=== PATIENT | female | born 1950 | race Caucasian/White ===

== ENCOUNTER → 2020-03-15 12:42 | Outpatient (CLI) | payer MEDICARE, OTHER, SELFPAY ==
--- NOTE | 2020-03-15 | DI.US.S_ITS ---
PROCEDURE: US FINE NEEDLE ASPIRATION INDICATIONS: LEFT THYROID NODULE TECHNIQUE: The indications, alternatives, benefits, risks, and complications of the procedure were explained to the patient. Written informed consent was obtained and placed in the chart. The area of interest was examined sonographically and a site was chosen for ultrasound guided percutaneous sampling. The skin was prepared and draped in the usual fashion, and anesthetized with 1% lidocaine infiltrated from the skin down to the lesion. Multiple passes were then performed, with contents emptied into an appropriate pathology specimen container. A bandage was applied to the area of access at completion of the study. COMPARISON: None. FINDINGS: Location(s) of lesion(s) sampled: A left thyroid nodule [place]: 25 gauge hypodermic needles. Number of passes: 6 Medications: 1% lidocaine for local anaesthesia. Complications: None. IMPRESSION: Successful ultrasound-guided 25 gauge fine needle aspiration, with cytology results pending. Dictated by: Hilario Tran M.D. on 03/15/2020 at 15:57 Approved by: Hilario Tran M.D. on 03/15/2020 at 15:57
== END ==
PROVIDERS: PCP Family Medicine; Referring Provider Surgery; Visit Provider Surgery
DX: E04.1 Nontoxic single thyroid nodule (principal)
CPT/HCPCS: 10005

== ENCOUNTER 2020-07-01 10:53 | Emergency (ER) | payer MEDICARE, OTHER, SELFPAY ==
[2020-07-01 11:00] VITALS: BP 126/60; PULSE 89; RESP 15; TEMP 37; O2SAT 97; BMI 34.4
--- NOTE | 2020-07-01 11:15 | DI.RAD.S_ITS ---
PROCEDURE: XR WRIST RT MIN 3V INDICATIONS: glf,wrist injury TECHNIQUE: 4 views of the wrist were acquired. COMPARISON: None. FINDINGS: Bones: There is a mildly displaced intra-articular radial styloid fracture seen. No additional fractures are detected. No radiocarpal dislocation can be seen. No suspicious bony lesions. Age-appropriate bony degenerative changes are seen. Scaphoid view: No navicular fractures are seen. Soft tissues: No suspicious soft tissue calcifications. IMPRESSION: Mildly displaced, intra-articular radial styloid fracture. Dictated by: Elroy Nelson M.D. on 07/01/2020 at 10:32 Approved by: Elroy Nelson M.D. on 07/01/2020 at 10:33
--- NOTE | 2020-07-01 11:23 | ED.FALL ---
HPI - Fall <RADHAMES Peck - Last Filed: 07/01/20 15:26> General Chief Complaint: Fall Stated Complaint: fell possibly roken rt wrist Time Seen by Provider: 07/01/20 11:14 Source: patient Mode of arrival: Ambulatory History of Present Illness HPI Narrative: 70yo female with a history of Yhuazjv-Swkpj-Mxsbd disorder and is currently on warfarin, presents emergency department for right wrist pain after fall. She states over the past year she has noticed worsening balance issues related to her neurological disease. She states she occasionally trips and falls. Yesterday evening she had difficulty with her balance and reach for her walker but fell. Patient states this is very common of her falls and balance issues related to her neurological disorder. She denies feeling any symptoms prior to falling such as dizziness, lightheadedness, chest pain, or diaphoresis. Patient states she fell forward and hit her forehead and right wrist. She noticed swelling and bruising to her right wrist and worsening pain with movement. Patient denies any other symptoms such as ankle pain, knee pain, hip pain, left-sided pain, neck pain, head pain, dizziness, syncope, confusion, vision changes, chest pain, shortness of breath, fevers, abdominal pain, nausea, vomiting, or diarrhea. Modified trauma. Patient declined head CT. Related Data Home Medications Medication Instructions Recorded Confirmed FUROSEMIDE (Lasix) 40 mg PO Q DAY #0 04/15/08 Fluoxetine Hydrochloride (Prozac) 60 mg PO Q DAY #0 04/15/08 MORPHINE (soluble) - 30 mg PO BID #0 04/15/08 (MORPHINE SULFATE) Nortriptyline Hydrochloride 25 mg PO #0 04/15/08 (Pamelor) OMEPRAZOLE 40 mg PO BID #0 04/15/08 POTASSIUM CHLORIDE (K-Dur) 20 meq PO EVERY DAY #0 04/15/08 WARFARIN SODIUM (COUMADIN) 2.5 mg PO Q DAY #0 04/15/08 [IR0N] #0 04/15/08 [STOOL SOFTNER] #0 04/15/08 atenolol 50 mg PO QDAY #0 04/15/08 gabapentin [Neurontin] 800 mg PO TID #0 04/15/08 Allergies Allergy/AdvReac Type Severity Reaction Status Date / Time phenobarbital Allergy Verified 07/01/20 11:08 Review of Systems <RADHAMES Peck - Last Filed: 07/01/20 15:26> Review of Systems Narrative: REVIEW OF SYSTEMS: GENERAL: Denies fever or chills. HENT: Reports head trauma, see HPI. EYES: No double vision or vision loss. CARDIOVASCULAR: No chest pain. RESPIRATORY: No shortness of breath or cough. GASTROINTESTINAL: No nausea, vomiting, diarrhea, or constipation. GENITOURINARY: No flank pain. MUSCULOSKELETAL: Complains of right wrist pain, see HPI. INTEGUMENTARY: No rash, lesions, or pruritus. NEURO: No numbness, tingling. PSYCH: No behavior or mood changes. Patient History <RADHAMES Peck - Last Filed: 07/01/20 15:26> Medical History No significant medical problems (Acute) Social History Smoking Status: Unknown if ever smoked Smoking Status: Unknown if ever smoked alcohol intake frequency: holidays/special occasions only Substance Use Type: does not use Exam <RADHAMES Peck - Last Filed: 07/01/20 15:26> Initial Vital Signs Initial Vital Signs: Vital Signs Temperature 98.6 F 07/01/20 11:00 Pulse Rate 89 07/01/20 11:00 Respiratory Rate 15 07/01/20 11:00 Blood Pressure 126/60 07/01/20 11:00 Pulse Oximetry 97 07/01/20 11:00 PHYSICAL EXAMINATION: GENERAL: Well groomed, alert, and cooperative. Answers questions promptly and appropriately. Vital signs noted. HENT: Normocephalic, no signs of trauma such as lacerations or contusions. EYES: Symmetrical, sclera white, no periorbital swelling. NECK: No tenderness to palpation of cervical spine. CARDIOVASCULAR: Regular rate. RESPIRATORY: Normal respiratory rate, trachea midline, airway patent. No stridor, nasal flaring or accessory muscle use. MUSCULOSKELETAL: Radial tenderness, swelling, and ecchymosis noted to right wrist. Decreased flexion due to pain. Normal gait and coordination. EXTREMITIES: CMS intact. SKIN: Warm, dry, soft, appropriate color for ethnicity. No lesions, rashes, or wounds. NEURO: Alert and Oriented X 3. No sensory deficits. PSYCH: Appropriate affect and mood. <Jonah Campbell MD - Last Filed: 07/01/20 16:45> Initial Vital Signs Initial Vital Signs: Vital Signs Temperature 98.6 F 07/01/20 11:00 Pulse Rate 89 07/01/20 11:00 Respiratory Rate 15 07/01/20 11:00 Blood Pressure 126/60 07/01/20 11:00 Pulse Oximetry 97 07/01/20 11:00 Procedures <RADHAMES Peck - Last Filed: 07/01/20 15:26> Orthopedic Splinting/Casting Injury #1: Side: right Upper Extremity Injury Location: wrist Upper Extremity Immobilizer: sugar tong splint Post splinting neuro exam: intact Post splinting vascular exam: intact Placed by: Nursing Additional Comments: CMS intact pre and post splint placement. Scores <RADHAMES Peck - Last Filed: 07/01/20 15:26> Nexus Score for C-Spine Focal Neurologic deficit present: No Midline spinal tenderness present: No Altered level of conciousness present: No Intoxication present: No Distracting Injury Present: No Nexus Criteria for C-spine: 0 Course <RADHAMES Peck - Last Filed: 07/01/20 15:26> Course Course Narrative: 1130: Patient declines head CT. Discussed with patient that she is high risk because she had her head and is on Coumadin as a could be bleeding in her brain. Patient states she feels well, family confirms normal behavior. Continues to decline CT. Orders Ordered: ED Orders 07/01/20 11:15 XR wrist RT min 3V Stat Vital Signs Vital signs: Vital Signs - 8 hr 07/01/20 11:00 Temperature 98.6 F Pulse Rate 89 Respiratory Rate 15 Blood Pressure 126/60 Pulse Oximetry 97 <Jonah Campbell MD - Last Filed: 07/01/20 16:45> Orders Ordered: ED Orders 07/01/20 11:15 XR wrist RT min 3V Stat Vital Signs Vital signs: Vital Signs - 8 hr 07/01/20 11:00 Temperature 98.6 F Pulse Rate 89 Respiratory Rate 15 Blood Pressure 126/60 Pulse Oximetry 97 MDM - Fall <RADHAMES Peck - Last Filed: 07/01/20 15:26> Medical Records Attestation: I reviewed the patient's medical records. Lab Data Attestation: I reviewed the patient's lab results. Imaging Data Extremity x-ray #1: Radiologist's Impression: [address] [id number] XRay Report Signed Patient: Mariah Kwong JMR#: [id number] : 9Acct:[id number] Age/Sex: 70 / FDate of Service: 07/01/20 Loc: ED Accession Number: [id number] Procedure: XR wrist RT min 3V Ordering Provider: Piper Márquez PROCEDURE: XR WRIST RT MIN 3V INDICATIONS: glf,wrist injury TECHNIQUE: 4 views of the wrist were acquired. COMPARISON: None. FINDINGS: Bones: There is a mildly displaced intra-articular radial styloid fracture seen. No additional fractures are detected. No radiocarpal dislocation can be seen. No suspicious bony lesions. Age-appropriate bony degenerative changes are seen. Scaphoid view: No navicular fractures are seen. Soft tissues: No suspicious soft tissue calcifications. IMPRESSION: Mildly displaced, intra-articular radial styloid fracture. Dictated by: Elroy Nelson M.D. on 07/01/2020 at 10:32 Approved by: Elroy Nelson M.D. on 07/01/2020 at 10:33 [facility] Narrative Medical decision making narrative: 70-year-old female with a neuromuscular disease, presents emergency department for right wrist pain after fall. Patient did hit her head and she is currently taking Coumadin. Affects trauma called, patient continued to decline head CT. Neuro exam intact, family at bedside states she is acting normally, no visible trauma to head. Nexus score of 0. Discussed benefits and wrist to head CT, patient continued to decline testing. X-ray shows a radial styloid fracture, reverse sugar-tong was applied, patient was referred to Ortho. CMS intact pre and post splint application by nursing. Patient was given a sling. Return precautions given for new or worsening symptoms. Patient agreed to plan of care verbalized understanding. Discharge Plan Departure Patient Disposition: Home Clinical Impression: Fracture of wrist Qualifiers: Encounter type: initial encounter Fracture type: closed Laterality: right Qualified Code(s): S62.101A - Fracture of unspecified carpal bone, right wrist, initial encounter for closed fracture Discharge Date/Time: 07/01/20 12:44 Instructions: DI for Wrist Fracture Activity Restrictions/Additional Instructions: Thank you for entrusting me with your care today. As discussed, your right wrist is fractured. You have a radial styloid fracture. We have placed a splint on your wrist, please leave this in place. If the Patricio bandages become too tight you can unwrap them and rewrapped them in a looser fashion. Use the sling as needed for comfort. Follow-up with orthopedic listed below. As discussed, you declined your CT scan. You are at high risk of injury because urine Coumadin in you hit your head. If you developed any new or worsening symptoms please return emergency department immediately. Prescriptions: No Action atenolol 50 MG tablet 50 mg PO QDAY Qty: 0 RF: 0 MORPHINE (soluble) - (MORPHINE SULFATE) 30 mg PO BID Qty: 0 RF: 0 gabapentin [Neurontin] 600 MG tablet 800 mg PO TID Qty: 0 RF: 0 FUROSEMIDE (Lasix) 40 mg PO Q DAY Qty: 0 RF: 0 OMEPRAZOLE 40 mg PO BID Qty: 0 RF: 0 Fluoxetine Hydrochloride (Prozac) 60 mg PO Q DAY Qty: 0 RF: 0 Nortriptyline Hydrochloride (Pamelor) 25 mg PO Qty: 0 RF: 0 POTASSIUM CHLORIDE (K-Dur) 20 meq PO EVERY DAY Qty: 0 RF: 0 WARFARIN SODIUM (COUMADIN) 2.5 mg PO Q DAY Qty: 0 RF: 0 [IR0N] Qty: 0 RF: 0 [STOOL SOFTNER] Qty: 0 RF: 0 Referrals: Dominic Brady MD [Physician] - Abelardo Charles DO [Primary Care Provider] - <Jonah Campbell MD - Last Filed: 07/01/20 16:45> Cosign ED Attending Cosignature Attestation: I was immediately available in the department for consultation. This documentation has been reviewed and I agree with assessment and plan. Supervised by Jonah Campbell MD
--- NOTE | 2020-07-01 11:33 | PC.NURSE ---
Patient is a modified trauma. On coumadin and hit her head. Pt refuses head CT at this time. Provider aware.
== END 2020-07-01 12:44 | disposition home or self-care (01) ==
PROVIDERS: Emergency Provider Nurse Practitioner; PCP Family Medicine
DX: S62.101A Fracture of unspecified carpal bone, right wrist, initial encounter for closed fracture (principal); W19.XXXA Unspecified fall, initial encounter
CPT/HCPCS: 29125; 73110; 99283; 99284

== ENCOUNTER 2021-04-23 22:27 | Emergency (ER) | payer MEDICARE, OTHER, SELFPAY ==
[2021-04-23] VITALS (7 sets, daily range): BP systolic 104–132; BP diastolic 53–61; PULSE 99–106; RESP 0–28; TEMP 37.3; O2SAT 95–98
[2021-04-23] MEDS: SODIUM CHLORIDE 0.9% 1,000 ML 1000 ML IV (22:00)
--- NOTE | 2021-04-23 22:45 | DI.RAD.S_ITS ---
PROCEDURE: XR CHEST 1V INDICATIONS: suspected sepsis TECHNIQUE: One view of the chest was acquired. COMPARISON: [facility], CT, CT CHEST WO CON, 10/11/2015, 21:43. [facility], CR, XR CHEST 1VW (PORTABLE), 10/08/2015, 8:35. [facility], CR, XR CHEST 2VW, 10/11/2015, 10:53. FINDINGS: Surgical changes and devices: None. Lungs and pleura: Bilateral perihilar infiltrates consistent with pulmonary edema or perihilar pneumonia. Small left pleural effusion. No or pneumothorax. Mediastinum: Mediastinal contours appear normal. Heart size is moderately increased. Bones and chest wall: No suspicious bony lesions. Overlying soft tissues appear unremarkable. IMPRESSION: 1. Bilateral perihilar infiltrates consistent with pulmonary edema or bilateral perihilar pneumonia. 2. Mild cardiomegaly. 3. Small left pleural effusion. No significant discrepancy with the game programmer radiology preliminary report. Dictated by: Cadence Wright M.D. on 04/24/2021 at 9:04 Approved by: Cadence Wright M.D. on 04/24/2021 at 9:07
[2021-04-23 23:03] LABS: Bacteria Urine None Seen; WBC Urine None Seen (0-5/HPF)
[2021-04-23 23:04] LABS: Appearance Urine UA CLEAR; Bilirubin Urine UA NEGATIVE (NEGATIVE); Color Urine UA YELLOW; Glucose Urine UA NEGATIVE (Negative); Ketones Urine UA NEGATIVE (NEGATIVE); Leukocyte Esterase Urine UA NEGATIVE (NEGATIVE); Nitrite Urine UA NEGATIVE (Negative); Occult Blood Urine UA TRACE-LYSED (Negative); Protein Urine UA TRACE (Negative); Urobilinogen Urine UA 0.2 E.U./dL (0.2)
[2021-04-23 23:10] LABS: pH Urine UA 5.5 (4.5-8.0)
[2021-04-23 23:12] LABS: Culture Indicated Urine Cult Not Indicated; Hyaline Casts Urine 0-1/LPF; RBC Urine 1-5/HPF (0-5/HPF); Squamous Epithelial Cell Urine 0-1 /HPF (0-5/HPF)
--- NOTE | 2021-04-23 23:38 | ED_ITS ---
HPI - General Adult General Chief complaint: Altered Mental Status Stated complaint: alert but confused, neg FAST Time Seen by Provider: 04/23/21 23:36 Source: EMS Mode of arrival: EMS History of Present Illness HPI narrative: Patient is a 70-year-old female who arrives by EMS for evaluation of confusion and elevated fever. Patient is unable to provide any HPI however EMS he was called by the patient's family for the reported presenting symptoms. Upon my evaluation the patient is arousable however is not able to answer any questions. Related Data Home Medications Medication Instructions Recorded Confirmed FUROSEMIDE (Lasix) 40 mg PO Q DAY #0 04/15/08 Fluoxetine Hydrochloride (Prozac) 60 mg PO Q DAY #0 04/15/08 MORPHINE (soluble) - 30 mg PO BID #0 04/15/08 (MORPHINE SULFATE) Nortriptyline Hydrochloride 25 mg PO #0 04/15/08 (Pamelor) OMEPRAZOLE 40 mg PO BID #0 04/15/08 POTASSIUM CHLORIDE (K-Dur) 20 meq PO EVERY DAY #0 04/15/08 WARFARIN SODIUM (COUMADIN) 2.5 mg PO Q DAY #0 04/15/08 [IR0N] #0 04/15/08 [STOOL SOFTNER] #0 04/15/08 atenolol 50 mg tablet 50 mg PO QDAY #0 04/15/08 gabapentin 600 mg tablet 800 mg PO TID #0 04/15/08 (Neurontin) Previous Rx's Medication Instructions Recorded azithromycin 250 mg tablet 250 mg PO DAILY 4 Days #4 tab 04/24/21 Allergies Allergy/AdvReac Type Severity Reaction Status Date / Time phenobarbital Allergy Verified 07/01/20 11:08 Review of Systems Review of Systems Narrative: Unable to obtain secondary to patient's mental status ROS Unobtainable: Unobtainable due to mental condition Patient History Medical History Gastroesophageal reflux disease Hypertension No significant medical problems Social History Smoking Status: Unknown if ever smoked Smoking Status: Unknown if ever smoked alcohol intake frequency: holidays/special occasions only Substance Use Type: does not use Exam Initial Vital Signs Initial Vital Signs: Vital Signs Temperature 99.2 F 04/23/21 22:40 Pulse Rate 105 H 04/23/21 22:40 Respiratory Rate 24 04/23/21 22:40 Blood Pressure 132/61 04/23/21 22:40 Pulse Oximetry 96 04/23/21 22:40 Const General: ill appearing HENMT Head: normal to inspection and normocephalic Resp Effort & Inspection: not labored and tachypneic Auscultation: clear to auscultation bilaterally Cardio Rate: regular rate Rhythm: regular rhythm Heart Sounds: murmur GI Palpation: soft Skin General: no rashes or lesions noted Neuro General: moves all extremities Speech: other (Patient will not answer questions) Extrem General: capillary refill normal Psych Appearance: disheveled Scores GCS Radha coma scale eye opening: To sound Radha coma scale verbal response: None [employer] coma scale motor response: Obey commands [employer] coma scale total score: 10 Course Orders Ordered: ED Orders 04/23/21 22:45 XR chest 1V Stat EKG-12 Lead Stat RT Consult Eval and Treat Now 04/23/21 22:55 Urinalysis and Microscopic Stat 04/23/21 23:15 Complete Blood Count AUTO DIFF Stat Comprehensive Metabolic Panel Stat Lactate (Lactic Acid) Stat Lipase Stat Procalcitonin Stat 04/23/21 23:21 Blood Culture Stat 04/23/21 23:53 COVID19 - ADMIT (VP [facility]GR[facility] swab/PCR) Stat Sodium Chloride (Normal Saline 0.9%) 1,000 mls @ 125 mls/hr IV CONT ROBERT Last Admin: 04/24/21 01:48 Dose: 125 mls/hr Documented by: TAMMY Discontinued Medications Acetaminophen (Acetaminophen 325 Mg Tablet) 650 mg PO NOW ONE Stop: 04/24/21 06:10 Last Admin: 04/24/21 06:15 Dose: 650 mg Documented by: Sodium Chloride (Normal Saline 0.9%) 1,000 mls @ 1,000 mls/hr IV BOLUS ONE Stop: 04/23/21 23:44 Last Infusion: 04/24/21 01:08 Dose: 0 mls/hr Documented by: Admin: 04/23/21 22:00 Dose: 1,000 mls/hr Documented by: TAMMY Ceftriaxone Sodium 1,000 mg/ (Sodium Chloride) 100 mls @ 200 mls/hr IV NOW ONE Stop: 04/23/21 23:38 Last Infusion: 04/24/21 01:07 Dose: 0 mls/hr Documented by: Admin: 04/23/21 23:49 Dose: 200 mls/hr Documented by: VALORIE Azithromycin 500 mg/ Dextrose 250 mls @ 250 mls/hr IV NOW ONE Stop: 04/23/21 23:45 Last Infusion: 04/24/21 01:07 Dose: 0 mls/hr Documented by: Admin: 04/24/21 00:21 Dose: 250 mls/hr Documented by: VALORIE Vital Signs Vital signs: Vital Signs - 8 hr 04/23/21 22:45 04/23/21 23:00 04/23/21 23:11 Temperature Pulse Rate 106 H 103 H 102 H Respiratory Rate 0 L 28 H 25 H Blood Pressure 124/59 L 123/58 L Pulse Oximetry 96 95 96 04/23/21 23:15 04/23/21 23:30 04/23/21 23:45 Temperature Pulse Rate 102 H 100 H 99 H Respiratory Rate 25 H 23 22 Blood Pressure 104/53 L Pulse Oximetry 96 98 98 04/24/21 00:00 04/24/21 00:15 04/24/21 00:30 Temperature Pulse Rate 99 H 97 H 93 H Respiratory Rate 19 21 Blood Pressure 112/56 L 119/71 Pulse Oximetry 92 92 04/24/21 00:45 04/24/21 01:00 04/24/21 01:15 Temperature 98 F Pulse Rate 92 H 91 H 93 H Respiratory Rate 17 Blood Pressure 110/71 Pulse Oximetry 99 97 04/24/21 01:30 04/24/21 01:45 04/24/21 02:00 Temperature Pulse Rate 91 H 88 87 Respiratory Rate 19 18 18 Blood Pressure 100/59 L 105/60 Pulse Oximetry 100 100 99 04/24/21 02:15 04/24/21 02:30 04/24/21 02:45 Temperature Pulse Rate 87 88 89 Respiratory Rate 18 32 H Blood Pressure 106/52 L Pulse Oximetry 99 98 99 04/24/21 03:00 04/24/21 03:15 04/24/21 03:30 Temperature Pulse Rate 89 90 90 Respiratory Rate Blood Pressure 104/58 L 113/59 L Pulse Oximetry 99 98 98 04/24/21 03:45 04/24/21 04:00 04/24/21 04:15 Temperature Pulse Rate 88 86 85 Respiratory Rate Blood Pressure 120/69 Pulse Oximetry 98 99 99 04/24/21 04:30 04/24/21 04:45 04/24/21 05:00 Temperature Pulse Rate 86 87 93 H Respiratory Rate Blood Pressure 114/66 162/91 H Pulse Oximetry 99 99 97 04/24/21 05:15 04/24/21 05:30 04/24/21 05:45 Temperature Pulse Rate 91 H 94 H 94 H Respiratory Rate Blood Pressure 131/66 Pulse Oximetry 98 98 98 04/24/21 06:00 04/24/21 06:01 04/24/21 06:15 Temperature Pulse Rate 93 H 94 H 89 Respiratory Rate Blood Pressure 153/70 H Pulse Oximetry 97 98 93 Medical Decision Making Medical Records Medical records reviewed: Yes I reviewed the patient's medical records. Lab Data Lab results reviewed: Yes I reviewed the patient's lab results. Result diagrams: 04/23/21 23:15 04/23/21 23:15 Labs: Lab Results 04/23/21 04/23/21 04/23/21 Range/Units 22:55 23:15 23:15 WBC 10.4 (4.5-11.0) X10^3/uL RBC 3.63 L (4.0-5.2) X10^6/uL Hgb 9.4 L (12.0-16.0) g/dL Hct 29.2 L (36-46) % MCV 80.6 (80-100) fL MCH 26.0 (26-34) PG MCHC 32.3 (30-36) % RDW 15.9 H (11.6-14.8) % Plt Count 392 (150-400) X10^3/uL Neut % (Auto) 81.1 H (50-75) % Lymph % (Auto) 13.6 L (25-40) % [place] % (Auto) 4.3 (3-14) % Eos % (Auto) 0.3 L (2-4) % Baso % (Auto) 0.7 (0-2) % Neut # (Auto) 8400 H (2086-5593) /uL Lymph # (Auto) 1400 (7136-5574) /uL [place] # (Auto) 400 (0-900) /uL Eos # (Auto) 0 (0-450) /uL Baso # (Auto) 100 (0-100) /uL Sodium 138 (137-145) mmol/L Potassium 4.4 (3.4-5.1) mmol/L Chloride 105 (98-107) mmol/L Carbon Dioxide 28 (22-32) mmol/L BUN 21 H (7-17) mg/dL Creatinine 0.95 (0.52-1.04) mg/dL Estimated GFR 58.0 L (>60) mL/min BUN/Creatinine Ratio 22.1 H (6-22) Glucose 151 H (80-110) mg/dL Lactate (0.7-2.1) mmol/L Calcium 8.8 (8.4-10.2) mg/dL Total Bilirubin 0.4 (0.2-1.3) mg/dL AST 19 (14-36) IU/L ALT 9 (<35) IU/L Alkaline Phosphatase 109 (38-126) U/L Total Protein 7.7 (6.3-8.2) g/dL Albumin 3.5 (3.5-5.0) g/dL Globulin 4.2 H (1.7-4.1) g/dL Albumin/Globulin Ratio 0.8 L (1.0-2.8) Lipase 15 L (23-300) U/L Procalcitonin 0.09 (<0.5) ng/mL Urine Color Yellow Urine Appearance Clear Urine pH 5.5 (4.5-8.0) Ur Specific [place] 1.020 (1.000-1.035) Urine Protein Trace H (Negative) Urine Glucose (UA) Negative (Negative) g/dL Urine Ketones Negative (NEGATIVE) Urine Occult Blood Trace-lysed (Negative) Urine Nitrate Negative (Negative) Urine Bilirubin Negative (NEGATIVE) Urine Urobilinogen 0.2 (0.2) E.U./dL Ur Leukocyte Esterase Negative (NEGATIVE) Urine RBC 1-5/hpf (0-5/HPF) Urine WBC None seen (0-5/HPF) Ur Squamous Epith Cells 0-1 /hpf (0-5/HPF) Urine Bacteria None seen (None) Hyaline Casts 0-1/lpf (None) Ur Culture Indicated? Cult not indicated SARS-CoV-2 (PCR) (Negative) 04/23/21 04/23/21 Range/Units 23:15 23:53 WBC (4.5-11.0) X10^3/uL RBC (4.0-5.2) X10^6/uL Hgb (12.0-16.0) g/dL Hct (36-46) % MCV (80-100) fL MCH (26-34) PG MCHC (30-36) % RDW (11.6-14.8) % Plt Count (150-400) X10^3/uL Neut % (Auto) (50-75) % Lymph % (Auto) (25-40) % [place] % (Auto) (3-14) % Eos % (Auto) (2-4) % Baso % (Auto) (0-2) % Neut # (Auto) (8314-7836) /uL Lymph # (Auto) (1950-5358) /uL [place] # (Auto) (0-900) /uL Eos # (Auto) (0-450) /uL Baso # (Auto) (0-100) /uL Sodium (137-145) mmol/L Potassium (3.4-5.1) mmol/L Chloride (98-107) mmol/L Carbon Dioxide (22-32) mmol/L BUN (7-17) mg/dL Creatinine (0.52-1.04) mg/dL Estimated GFR (>60) mL/min BUN/Creatinine Ratio (6-22) Glucose (80-110) mg/dL Lactate 0.8 (0.7-2.1) mmol/L Calcium (8.4-10.2) mg/dL Total Bilirubin (0.2-1.3) mg/dL AST (14-36) IU/L ALT (<35) IU/L Alkaline Phosphatase (38-126) U/L Total Protein (6.3-8.2) g/dL Albumin (3.5-5.0) g/dL Globulin (1.7-4.1) g/dL Albumin/Globulin Ratio (1.0-2.8) Lipase (23-300) U/L Procalcitonin (<0.5) ng/mL Urine Color Urine Appearance Urine pH (4.5-8.0) Ur Specific [place] (1.000-1.035) Urine Protein (Negative) Urine Glucose (UA) (Negative) g/dL Urine Ketones (NEGATIVE) Urine Occult Blood (Negative) Urine Nitrate (Negative) Urine Bilirubin (NEGATIVE) Urine Urobilinogen (0.2) E.U./dL Ur Leukocyte Esterase (NEGATIVE) Urine RBC (0-5/HPF) Urine WBC (0-5/HPF) Ur Squamous Epith Cells (0-5/HPF) Urine Bacteria (None) Hyaline Casts (None) Ur Culture Indicated? SARS-CoV-2 (PCR) Negative (Negative) Imaging Data Chest x-ray: Radiologist's Impression: Left basilar infiltrate and small left pleural effusion Scattered atelectasis is also noted bilaterally ECG Data Interpretation: Sinus rhythm Ventricular rate 94 Normal axis Normal QRS Normal QTC No ST T wave changes MDM Narrative Medical decision making narrative: Patient upon arrival was ill-appearing. Had a GCS of 10. Was not answering any questions. Was diaphoretic. Was febrile. Labs and cultures for obtain. Initially given a dose of antibiotics. Once the chest x-ray resulted there was concern about pneumonia. She was then given azithromycin. Unfortunately no bed availability here at the hospital overnight and also in the local area so she was boarded here in the emergency department. Throughout the night she received fluids. Her fever improved. Several hours later she started to feel much better. She was alert oriented x3. GCS of 15. States that she knew that she was in the hospital and that she came to the hospital because her fever was elevated. She does state that her ?lungs hurt ?she reports no other symptoms. Throughout the morning she became more alert. Stating that she was feeling very well. She does use a walker at baseline. She was able to walk around the emergency department without having any desaturations and felt at baseline. She was maintaining her oxygen saturations on room air. I feel that despite the initial plan to admit to the hospital for altered mental status and pneumonia given her improvement overnight that the patient can be discharged home with oral antibiotics. Treat her as a community-acquired pneumonia. She was given instructions for follow-up and also return precautions. Antibiotics were sent to the pharmacy of her choice. She expressed understanding and agreement. Discharge Plan Departure Patient Disposition: Home Clinical Impression: Altered mental status, Pneumonia Instructions: Pneumonia-Adult Activity Restrictions/Additional Instructions: I suspect that the symptoms that brought him into the emergency department last night were caused by the environmental heat over the past couple days and also because of the pneumonia that was found on the chest x-ray. We do need to treat you with antibiotics. Prescription for these antibiotics was sent to the pharmacy of your choice. I recommend that you continue the rest of your medications as directed. Contact your primary provider for a follow-up in please return to the emergency department for any new or worsening symptoms Prescriptions: New azithromycin 250 mg tablet 250 mg PO DAILY 4 Days Qty: 4 RF: 0 No Action atenolol 50 MG tablet 50 mg PO QDAY Qty: 0 RF: 0 MORPHINE (soluble) - (MORPHINE SULFATE) 30 mg PO BID Qty: 0 RF: 0 gabapentin [Neurontin] 600 MG tablet 800 mg PO TID Qty: 0 RF: 0 FUROSEMIDE (Lasix) 40 mg PO Q DAY Qty: 0 RF: 0 OMEPRAZOLE 40 mg PO BID Qty: 0 RF: 0 Fluoxetine Hydrochloride (Prozac) 60 mg PO Q DAY Qty: 0 RF: 0 Nortriptyline Hydrochloride (Pamelor) 25 mg PO Qty: 0 RF: 0 POTASSIUM CHLORIDE (K-Dur) 20 meq PO EVERY DAY Qty: 0 RF: 0 WARFARIN SODIUM (COUMADIN) 2.5 mg PO Q DAY Qty: 0 RF: 0 [IR0N] Qty: 0 RF: 0 [STOOL SOFTNER] Qty: 0 RF: 0 Referrals: Abelardo Charles DO [Primary Care Provider] -
[2021-04-23 23:40] LABS: Add Manual Diff / Slide Review NO; Basophils Absolute Auto 100 /uL (0-100); Basophils Percent Auto 0.7 % (0-2); Eosinophils Absolute Auto 0 /uL (0-450); Eosinophils Percent Auto 0.3 % (2-4); Hematocrit 29.2 % (36-46); Hemoglobin 9.4 g/dL (12.0-16.0); Lymphocytes Absolute Auto 1400 /uL (1100-4500); Lymphocytes Percent Auto 13.6 % (25-40); Mean Corpuscular HGB Conc 32.3 % (30-36); Mean Corpuscular Volume 80.6 fL (80-100); Monocytes Absolute Auto 400 /uL (0-900); Monocytes Percent Auto 4.3 % (3-14); Neutrophils Absolute Auto 8400 /uL (1500-7000); Neutrophils Percent Auto 81.1 % (50-75); Platelet Count 392 X10^3/uL (150-400); Red Blood Cell Count 3.63 X10^6/uL (4.0-5.2); Red Cell Distribution Width 15.9 % (11.6-14.8); White Blood Cell Count 10.4 X10^3/uL (4.5-11.0)
[2021-04-23 23:49] LABS: Alanine Aminotransferase 9 IU/L (<35); Albumin 3.5 g/dL (3.5-5.0); Albumin Globulin Ratio 0.8 (1.0-2.8); Alkaline Phosphatase 109 U/L (38-126); Aspartate Aminotransferase 19 IU/L (14-36); BUN Creatinine Ratio 22.1 (6-22); Bilirubin Total 0.4 mg/dL (0.2-1.3); Blood Urea Nitrogen 21 mg/dL (7-17); Calcium 8.8 mg/dL (8.4-10.2); Carbon Dioxide 28 mmol/L (22-32); Chloride 105 mmol/L (98-107); Globulin 4.2 g/dL (1.7-4.1); Glucose 151 mg/dL (80-110); HEMOLYSIS < 15 (0-50); Lactate (Lactic Acid) 0.8 mmol/L (0.7-2.1); Lipase 15 U/L (23-300); Potassium 4.4 mmol/L (3.4-5.1); Sodium 138 mmol/L (137-145); Total Protein 7.7 g/dL (6.3-8.2)
[2021-04-23] MEDS: cefTRIAXone 1,000 MG in SODIUM CHLORIDE 0.9% 100 ML 200 ML IV (23:49)
[2021-04-24] VITALS (27 sets, daily range): BP systolic 100–162; BP diastolic 52–91; PULSE 85–99; RESP 17–32; TEMP 36.6; O2SAT 92–100
[2021-04-24 00:06] LABS: Procalcitonin 0.09 ng/mL (<0.5)
[2021-04-24] MEDS: AZITHROMYCIN 500 MG in DEXTROSE 5% IN WATER 250 ML IV (00:21)
[2021-04-24 00:54] LABS: COVID19 - ADMIT (NP swab/PCR) Negative (Negative)
[2021-04-24] MEDS: SODIUM CHLORIDE 0.9% 1,000 ML 125 ML IV (01:48)
--- NOTE | 2021-04-24 02:16 | PC.NURSE ---
She is becoming more alert now,more talkative and aware she is in the hospital,the year and asked for her wig,which is in a bag at her bedside.
[2021-04-24] MEDS: ACETAMINOPHEN 325 MG TABLET 650 MG PO (06:15)
--- NOTE | 2021-04-24 06:50 | PC.NURSE ---
She walked with a walker approx. 15 yards with her o2 saturation on RA staying at 94 per cent.She feels better and wants to go home.
--- NOTE | 2021-04-24 06:52 | PC.NURSE ---
She is tolerating liquids by mouth and her ayala catheter was removed intact per protocol.
--- NOTE | 2021-04-24 08:15 | PC.NURSE ---
ambulated with walker.
== END 2021-04-24 08:20 | disposition home or self-care (01) ==
PROVIDERS: Emergency Provider Emergency Medicine; PCP Family Medicine
DX: J18.9 Pneumonia, unspecified organism (principal); R41.82 Altered mental status, unspecified; R50.9 Fever, unspecified; Z20.822 Contact with and (suspected) exposure to COVID-19
CPT/HCPCS: 36415; 51702; 71045; 80053; 81001; 83605; 83690; 84145; 85025; 87040; 87635; 93005; 96361; 96365; 96368; 99285; C9803; J0696

== ENCOUNTER → 2022-01-18 14:02 | Outpatient (CLI) | payer MEDICARE, OTHER, SELFPAY ==
--- NOTE | 2022-01-18 | DI.MRI.S_ITS ---
PROCEDURE: MR LUMBAR SPINE WO CON INDICATIONS: Radiculopathy, lumbar region TECHNIQUE: Noncontrast sagittal T1 spin echo and T2 fast echo, sagittal STIR, and T2 fast spin echo through the lumbar spine. In cases with scoliosis, additional coronal T2 fast spin echo may be performed. COMPARISON: [facility], CR, XR LUMBAR SPINE WITH OLBIQUES PLUS FLEXION EXTENSION, 11/24/2019, 10:53. [facility], MR, MR LUMBAR SPINE WITHOUT CONTRAST, 12/01/2019, 12:41. FINDINGS: Image quality: Excellent. Alignment and Curvature: Mild levoconvex scoliotic curvature is noted. Accentuated thoracic kyphosis is seen. No focal AP alignment abnormality is seen. Bone Marrow: Marrow is of normal overall signal. Scattered foci are seen, which are hyperintense on T1-weighted and T2-weighted imaging, which are most consistent with benign vertebral body hemangiomas. No acute vertebral body compression fractures. Sacral fatty metaplasia can be seen. Spinal Cord: Conus medullaris terminates at the L1 level. Visualized cord demonstrates normal signal and size. Paraspinous Soft Tissues: No paravertebral masses. T11-T12: At least moderate loss of disc height and disc signal can be seen anteriorly. No significant neural foraminal or central canal narrowing can be seen. T12-L1: Moderate loss of disc height is seen. Loss of disc signal is seen. No neural foraminal narrowing or central canal narrowing can be seen. L1-L2: The disc height is well-preserved. Loss of disc signal is seen at this level. No neural foraminal narrowing. No central canal narrowing. Stable from the prior study. L2-L3: The disc height is well-preserved. Loss of disc signal is seen at this level. Mild generalized disc bulge is seen. There is a superimposed central disc protrusion. Mild to moderate facet hypertrophy is seen. There is mild left-sided and no right-sided neural foraminal narrowing. Mild central canal narrowing is seen. When comparison is made with the prior images, these findings are similar. L3-L4: The disc height is well-preserved. Loss of disc signal is seen at this level. Mild generalized disc bulge is seen. Mild facet joint hypertrophy is seen. No significant neural foraminal or central canal narrowing can be seen. No significant change from the prior. L4-L5: The disc height is well-preserved. Loss of disc signal is seen at this level. Moderate disc bulge is seen, with a central disc protrusion. At least moderate facet hypertrophy is seen. Associated hypertrophy of the ligamentum flavum can be seen. Fluid is seen within the facet joints themselves. [id number] bilateral neural foraminal narrowing can be seen. Mild to moderate central canal narrowing is seen. When comparison is made with the prior images, these findings are similar. L5-S1: The disc height and disc signal are relatively well preserved. Postoperative change can be seen, with prior right hemilaminectomy. At least moderate facet hypertrophy is seen. There is moderate to severe right-sided neural foraminal narrowing, with a degree of compression upon the exiting right L5 nerve root. Moderate left-sided neural foraminal narrowing is seen. No significant central canal narrowing is seen. When comparison is made with the prior images, these findings are similar. IMPRESSION: Multiple levels of lumbar spine degenerative change are seen, without significant progression compared to 2020. Dictated by: Elroy Nelson M.D. on 01/18/2022 at 14:29 Approved by: Elroy Nelson M.D. on 01/18/2022 at 14:34
== END ==
PROVIDERS: PCP Family Medicine; Referring Provider Acupuncturist; Visit Provider Acupuncturist
DX: M47.26 Other spondylosis with radiculopathy, lumbar region (principal); M47.27 Other spondylosis with radiculopathy, lumbosacral region
CPT/HCPCS: 72148

== ENCOUNTER → 2024-03-24 16:43 | Outpatient (ROUT) | payer MEDICARE, OTHER, SELFPAY ==
[2024-03-24 17:01] LABS: Appearance Urine UA CLEAR; Bilirubin Urine UA NEGATIVE (NEGATIVE); Color Urine UA YELLOW; Glucose Urine UA NEGATIVE (Negative); Ketones Urine UA NEGATIVE (NEGATIVE); Leukocyte Esterase Urine UA 2+ (NEGATIVE); Nitrite Urine UA POSITIVE (Negative); Occult Blood Urine UA 2+ (Negative); Protein Urine UA NEGATIVE (Negative); Specific Gravity Urine UA 1.015 (1.000-1.035); Urobilinogen Urine UA 0.2 E.U./dL (0.2)
[2024-03-24 17:16] LABS: Bacteria Urine Moderate (10-30); Culture Indicated Urine Specimen Cultured; Granular Casts Urine 0-1/LPF; Mucus Urine 1+ (Negative); RBC Urine 0-1/HPF (0-5/HPF); Squamous Epithelial Cell Urine 1-5 /HPF (0-5/HPF); Urine Volume 10mL (spun); WBC Urine 1-5/HPF (0-5/HPF)
== END ==
PROVIDERS: PCP Family Medicine; Visit Provider Pharmacist
DX: N39.0 Urinary tract infection, site not specified (principal)
CPT/HCPCS: 81001; 87077; 87086; 87186